=== PATIENT | female | born 1945 | race Caucasian/White ===

== ENCOUNTER 2018-12-25 10:22 | Emergency (ER) | payer MEDICARE, OTHER ==
--- OUTSIDE RECORDS SUMMARY | 2018-12-25 10:29 | XMS REPORT | Continuity of Care Document ---
:1945 External Reference #:[id number] Author Name Alfonzo Cobb M.D. (transmitted by agent of provider Tessa Dempsey) Address [address] [facility] [address], [place] [address] Care Team Providers Name Role Phone Alfonzo Cobb III, MD - Internal Care Team Information [employer] Medicine Problems Active Problems Provider Date Glaucoma Alfonzo Cobb M.D. Onset: 09/25/2016 Disorder of bone Alfonzo Cobb M.D. Onset: 09/25/2015 Osteochondropathy Alfonzo Cobb M.D. Onset: 03/10/2013 Pure hypercholesterolemia Alfonzo Cobb M.D. Onset: 03/10/2013 Social History Type Date Description Comments Sex Unknown Tobacco Use Start: Unknown Never Smoked Cigarettes ETOH Use Currently consumes alcohol 6-9 drinks/week Tobacco Use Start: Unknown Patient has never smoked Smoking Status Reviewed: 11/16/18 Patient has never smoked Exercise Type/Frequency Exercises regularly Allergies, Adverse Reactions, Alerts Active Allergies Reaction Severity Comments Date Timolol 01/03/2016 Inactive Allergies NKDA 04/07/2007 NKDA 01/03/2016 Medications Active Medications SIG Qnty Indications Ordering Provider Date Calcium/Vitamin D bid 100tabs Alfonzo Cobb, 04/06/2007 600mg M.D. Tablets Multi-Day Vitamins 1 PO qd Unknown Tablets Latanoprost right eye only Unknown 0.005% Solution Medications Administered in Office Medication SIG Qnty Indications Ordering Provider Date Influenza Virus Vaccine Unknown 12/18/2013 Injection Immunizations CPT Code Status Date Vaccine Lot # [id number] Given 09/25/2016 Tdap - Tetanus/Diptheria/Acellular Pertussis [id number] Given 04/20/2014 Pneumococcal Conjugate Vaccine 13 Valent For [id number] Intramuscular Use 14815 Given 03/10/2013 Pneumonia Vaccine [id number] Given 12/21/2012 Flu Vaccine Split Virus Preservative Free For [id number] Indiv 3Yr Older 96902 Given 12/09/2008 Influenza Virus 3Yrs & Over [id number] Given 03/19/2006 Pneumovax (History By Patient) [id number] Given 03/19/2006 Td (History By Patient) Vital Signs Date Vital Result Comment 11/16/2018 11:06am Height 61 inches 5'1" Weight 121.00 lb Heart Rate 58 /min BP Systolic 137 mmHg BP Diastolic 72 mmHg O2 % BldC Oximetry 100 % BMI (Body Mass Index) 22.9 kg/m2 10/02/2017 3:50pm Height 61 inches 5'1" Weight 121.00 lb Heart Rate 63 /min BP Systolic Sitting 120 mmHg BP Diastolic Sitting 68 mmHg O2 % BldC Oximetry 99 % BMI (Body Mass Index) 22.9 kg/m2 Results Description No Information Available Procedures Date Code Description Status 09/17/2018 18878176 Mammogram Completed 09/16/2017 [id number] Bone Mineral Density Test Completed 09/16/2017 [id number] Mammogram Completed 09/16/2016 [id number] Mammogram Completed 08/17/2015 [id number] Bone Mineral Density Test Completed 08/17/2015 [id number] Mammogram Completed 08/31/2013 [id number] Diabetic Retinal Eye Exam Completed 07/28/2013 [id number] Colonoscopy Completed 03/15/2013 [id number] Bone Mineral Density Test Completed 02/26/2013 [id number] Mammogram Completed 08/30/2010 678512662 Bone Mineral Density Test Completed 05/25/2008 [id number] Colonoscopy Completed Medical Devices Description No Information Available Encounters Description No Information Available Assessments Date Code Description Provider 11/16/2018 Z00.00 Encounter for general adult medical Alfonzo Cobb M.D. examination without abnormal findings 11/16/2018 M85.89 Other specified disorders of bone density Alfonzo Cobb M.D. and structure, multiple sites 11/16/2018 E78.00 Pure hypercholesterolemia, unspecified Alfonzo Cobb M.D. 11/16/2018 H40.9 Unspecified glaucoma Alfonzo Cobb M.D. 11/16/2018 M54.5 Low back pain Alfonzo Cobb M.D. 11/16/2018 H61.23 Impacted cerumen, bilateral Alfonzo Cobb M.D. Plan of Treatment Future Appointment(s):11/18/2019 9:20 am - [facility] - Alfonzo Cobb M.D.Z00.00 Encounter for general adult medical examination without abnormal findingsComments: Discussed the new shingles vaccine; other shots current. (+) dental. eye exams. Colon exam currentwith repeat planned next yearM85.89 Other specified disorders of bone density and structure, multiple sitesComments:On Calcium/Vit D Rx. Repeat DEXA scan due next yearE78.00 Pure hypercholesterolemia, unspecifiedComments:Diet Rx only; repeat labs [id number] Unspecified glaucomaComments:On Rx per pt's [id number] Low back painNew Therapy: Physical TherapyComments:Chronic, occ low back ache sx; PT eval [id number] Impacted cerumen, bilateralNew Orders:bilat ear lavage, Ordered: 11/16/18 Functional Status Description No Information Available Mental Status Description No Information Available Referrals Description No Information Available
[2018-12-25 10:34] VITALS: BP 111/61
--- NOTE | 2018-12-25 12:18 | UC ---
Knee Pain HPI - HPI Summary HPI Summary: PATIENT FELL DOWN THE STAIRS AT HOME YESTERDAY MORNING WHILE DUSTING. LANDED DIRECTLY ON HER LEFT KNEE. IS ABLE TO WEIGHT-BEAR AND HAS MINIMAL DISCOMFORT IF SHE KEEPS HER KNEE STRAIGHT. DENIES NUMBNESS OR TINGLING. - History of Current Complaint Chief Complaint: UCLowerExtremity Stated Complaint: LEFT KNEE PAIN Time Seen by Provider: 12/25/18 11:45 Hx Obtained From: Patient, Family/Inserter Promotional Item - Onset/Duration: Sudden Onset, Lasting Days - 1 DAY, Still Present Severity Initially: Moderate Severity Currently: Moderate Pain Intensity: 7 Pain Scale Used: 0-10 Numeric Character: Sharp Aggravating Factor(s): Movement, Weight Bearing Alleviating Factor(s): Rest, Position Associated Signs And Symptoms: Positive: Swelling Able to Bear Weight: Yes - WITH STRAIGHT LEG - Allergies/Home Medications Allergies/Adverse Reactions: Allergies Allergy/AdvReac Type Severity Reaction Status Date / Time No Known Allergies Allergy Verified 12/25/18 10:35 Home Medications: Home Medications Latanoprost/Pf [Latanoprost 0.005% Eye Drop] 1 % .ROUTE IN AM AND AT BEDTIME MDD right eye 12/25/18 [History Confirmed 12/25/18] PMH/Surg Hx/FS Hx/Imm Hx Previously Healthy: Yes - Surgical History Surgical History: Yes Surgery Procedure, Year, and Place: sarkis,appy,eye surgeries ,left humerus plated , - Family History Known Family History: Positive: Non-Contributory - Social History Alcohol Use: Daily Substance Use Type: None Smoking Status (MU): Never Smoked Tobacco Review of Systems All Other Systems Reviewed And Are Negative: Yes Constitutional: Positive: Negative Skin: Positive: Negative Respiratory: Positive: Negative Cardiovascular: Positive: Negative Gastrointestinal: Positive: Negative Musculoskeletal: Positive: Arthralgia, Decreased ROM, Edema Physical Exam Triage Information Reviewed: Yes Appearance: Well-Appearing, No Pain Distress, Well-Nourished Vital Signs: Initial Vital Signs Temp 97.6 F 12/25/18 10:31 Pulse 77 12/25/18 10:31 Resp 16 12/25/18 10:31 BP 111/61 12/25/18 10:31 Pulse Ox 100 12/25/18 10:31 Vital Signs Reviewed: Yes Eyes: Positive: Conjunctiva Clear ENT: Positive: Hearing grossly normal Neck: Positive: Supple Respiratory: Positive: No respiratory distress, No accessory muscle use Cardiovascular: Positive: Pulses Normal Abdomen Description: Positive: Soft Musculoskeletal: Positive: ROM Limited @ - LEFT KNEE FLEXION, Edema @ - LEFT KNEE, Other: - LEFT KNEE TENDER OVER PATELLA. NO JOINT LINE TENDERNESS. MCL AND LCL INTACT TO STRESS TESTING. NEG DRAWERS SIGNS. NO TENDERNESS OVER PATELLAR LIGAMENT OR QUADRICEPS TENDON. DECREASED ROM (FLEXION). Neurological: Positive: Alert Psychological: Positive: Age Appropriate Behavior Skin: Negative: Rashes Diagnostics - Radiology LEFT KNEE XRAYS Radiology Interpretation Completed By: Radiologist Summary of Radiographic Findings: comminuted and somewhat displaced fracture of the patella Knee Pain Course/Dx - Course Course Of Treatment: LEFT KNEE X-RAYS TODAY SHOW A COMMINUTED AND SOMEWHAT DISPLACED FRACTURE OF THE PATELLA WITH MILD MEDIAL AND LATERAL COMPARTMENT JOINT SPACE NARROWING. I CALLED ORTHOPEDICS AND THEY WOULD LIKE TO SEE HER TODAY. APPOINTMENT AT 1:[address] MEDINA. ADVISED TO KEEP KNEE STRAIGHT AND BE NONWEIGHTBEARING. KOMAL WRAP APPLIED AND CRUTCHES PROVIDED. KNEE IMMOBILIZER NOT USED ORTHOPEDICS DOES NOT APPROVE OF THE TYPE OF KNEE IMMOBILIZER WE HAVE HERE AT THE . - Differential Dx/Diagnosis Provider Diagnosis: Displaced fracture of left patella Discharge ED - Sign-Out/Discharge Documenting (check all that apply): Patient Departure All imaging exams completed and their final reports reviewed: Yes - Discharge Plan Condition: Stable Disposition: HOME Patient Education Materials: Patellar Fracture (ED) Referrals: Amber Medina MD [Medical Doctor] - (YOU HAVE AN APPT TODAY AT 1:45PM) Alfonzo Cobb MD [Primary Care Provider] - If Needed Additional Instructions: LEFT KNEE X-RAYS TODAY SHOW A COMMINUTED AND SOMEWHAT DISPLACED FRACTURE OF THE PATELLA. KEEP YOUR KNEE STRAIGHT. THE KOMAL BANDAGE WILL HELP REMIND YOU NOT TO BEND YOUR KNEE. USE THE CRUTCHES AND BE NONWEIGHTBEARING UNTIL SEEN BY ORTHOPEDICS TODAY AND THEY FURTHER ADVISE YOU. - Billing Disposition and Condition Condition: STABLE Disposition: Home
== END 2018-12-25 12:30 | disposition home or self-care (01) ==
LOC: UCEAST 10:22
DX: S82.002A Unspecified fracture of left patella, initial encounter for closed fracture (principal); W10.9XXA Fall (on) (from) unspecified stairs and steps, initial encounter; Y93.E9 Activity, other interior property and clothing maintenance; Y92.009 Unspecified place in unspecified non-institutional (private) residence as the place of occurrence of the external cause
CPT/HCPCS: 99213; G0463

== ENCOUNTER → 2018-12-29 13:31 | Day surgery (SDC) | payer MEDICARE, OTHER ==
--- NOTE | 2018-12-28 09:02 | HP ---
AMENDED REPORT NOW INCLUDES DESIGNATED COSIGNER PREOPERATIVE HISTORY AND PHYSICAL: DATE OF ADMISSION: 12/29/18 ATTENDING PHYSICIAN: Dr. Amber Medina.* (DICTATED BY NICHOLAS KOVACS) HISTORY OF PRESENT ILLNESS: This is a 73-year-old female who presents with left knee pain after falling down stairs on 12/24/18. She was trying to dust a high place and was only on 5 stairs but lost her footing and fell down landing directly on the left knee. She had immediate 8/10 pain and was unable to bear weight on the extremity due to her discomfort. She went to [facility], where x-rays were performed and revealed a fracture of her patella. She was given a bulky Alexsander bandage and referred to our office. On presentation, she says she has less pain if she keeps the leg still and straight but any movement is quite painful. She denies previous injury to this knee and has only used gvan-uhf-mthltdp medication for discomfort. PAST MEDICAL HISTORY: Glaucoma, osteopenia, and right humerus fracture. PAST SURGICAL HISTORY: Right humerus open reduction internal fixation, glaucoma surgery, and cataract surgery. She denies anesthetic complications with these procedures. CURRENT MEDICATIONS: 1. Calcium plus vitamin D 600 mg b.i.d. 2. Multivitamin 1 tab p.o. daily. 3. Latanoprost 0.005% drops to right eye only. ALLERGIES: TIMOLOL. FAMILY HISTORY: Positive for paternal cancer but no heart disease or diabetes. SOCIAL HISTORY: She lives with her . 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 She denies tobacco or recreational drug use and will consume approximately 7 alcoholic beverages per week. She is very active with swimming and balance classes, and she is right-hand dominant. REVIEW OF SYSTEMS: Fourteen systems are reviewed with the patient today and are negative. PHYSICAL EXAMINATION GENERAL: The patient is a well-developed, well-nourished female seated on exam chair, in no distress, with appropriate affect. VITAL SIGNS: Height 61 inches, weight 119 pounds, blood pressure 138/72, pulse of 80. HEENT: Normocephalic, atraumatic. Hearing and vision are grossly intact with extraocular movements intact. NECK: Trachea is midline and symmetrical. LUNGS: Clear to auscultation. No wheezes, rales, or rhonchi appreciated. CARDIO: Regular rate and rhythm. Normal S1, S2. No murmurs, rubs or gallops noted. ABDOMEN: Nondistended, soft with bowel sounds present. GAIT: Gait is antalgic favoring the left lower extremity. MUSCULOSKELETAL: Left lower extremity: Skin is dry and intact without open wounds or abrasions. Mild edema is noted without erythema or ecchymosis. The patient is tender to palpation in the peripatellar region and she is unable to do a straight leg raise due to pain. She has active range of motion in 4 planes and 5/5 strength against resistance in the left ankle without distal edema, varicosities, or hyperreflexia. Sensation is intact to light touch throughout with a 2+ dorsalis pedis pulse. IMAGING: Multiple views of the left knee are reviewed and show a comminuted fracture of the inferior portion of the patella with significant articular surface displacement on the lateral view. ASSESSMENT: Comminuted displaced left patellar fracture. PLAN: Open reduction internal fixation of left patellar fracture with Dr. Medina. The patient's questions were answered and she would like to proceed. She will obtain clearance through her primary care, Dr. Cobb, prior to the surgery and can call with questions or concerns otherwise. She will follow up postoperatively. NICHOLAS KOVACS [id number]/[facility] #: [id number] MTDD
[~2018-12-29 13:31] MED LIST: Buffered Lidocaine 1% SYRIN* 1 ML/SYRINGE INTRADERM ONE; Dexamethasone IV* 4 MG/ML 1 ML (4 MG) IV SLOW PU ONE; Dexamethasone IV* 4 MG/ML 1 ML (4 MG) ONE; DiMENhydriNATE IV* 50 MG/ML VIAL IV PUSH PRN; Famotidine IV* 10 MG/ML 2 ML (20 mg) IV ONE; Famotidine IV* 10 MG/ML 2 ML (20 mg) ONE; HYDROmorphone INJ1* 1 MG/ML SYRINGE IV PRN; HYDROmorphone INJ1* 1 MG/ML SYRINGE ONE; KETAMINE HCL* 50 MG/ML 10 ML VIAL ONE; Ketorolac INJ* 30 MG/ML 1 ML VIAL ONE; Lactated Ringers 1000 ML Bag* 1,000 ML IV SCH; Lidocaine 2% PF * 5 ML VIAL ONE; Naloxone* 0.4 MG/ML 1 ML VIAL IV PRN; Ondansetron INJ* 2 MG/ML VIAL ONE; Propofol* 10 MG/ML 20 ML BTL ONE; ROPIVACAINE 5 MG/ML 30 ML BTL (0.5%) ONE; ceFAZolin 2 GM in NS PREMIX(*) 2 GM/100 ML BAG IVPB ONE; fentaNYL* 50 MCG/ML 2 ML VIAL (100 MCG VIAL) ONE; oxyCODONE/Acetamin 5/325 MG* TAB ONE
[2018-12-29] MEDS: fentaNYL* 50 MCG/ML 2 ML VIAL (100 MCG VIAL) IV PRN ×4 (19:36→20:30)
[2018-12-29 21:21] VITALS: BP 131/76
--- NOTE | 2018-12-30 00:31 | OP ---
DATE OF OPERATION: 12/29/18 - [facility] DATE OF : 41 SURGEON: Amber Medina MD SALES TRADER: NICHOLAS Carreno. Ms. Michel did help throughout the procedure with preparation of the leg, wound retraction, manipulation of the knee and wound closure. ANESTHESIOLOGIST: Dr. Flores. ANESTHESIA: General. PRE-OP DIAGNOSIS: Left knee, comminuted displaced patellar fracture. POST-OP DIAGNOSIS: Left knee, comminuted displaced patellar fracture. OPERATIVE PROCEDURE: Open reduction and internal fixation of the left comminuted displaced patellar fracture. TOURNIQUET TIME: 32 minutes. COMPLICATIONS: None. SPECIMENS: None. HARDWARE USED: This was the Arthrex patella fracture system, two 4-0 cannulated screws, length of 32 mm were used along with the FiberTape cerclage system. BRIEF HISTORY/INDICATION: Ms. Lira is a 73-year-old female, who took a fall over the weekend and fractured her left patella. On radiograph, there was a comminution of the closed fracture as well as significant articular step-off of the inferior fracture fragment. I did recommend operative treatment of the fracture and the patient wished to proceed. Informed consent was obtained from the patient. She understood the risks of surgery included, but were not limited to bleeding, infection, damage to nearby structures, continued pain, need for further surgery, failure of hardware, failure of fracture fixation, nonunion, malunion, post- traumatic arthritis, stiffness, loss of motion, stroke, heart attack, blood clot and . She wished to proceed. 1INTRAOPERATIVE FINDINGS: Intraoperatively, the patient was noted to have comminuted fracture where the main superior and inferior fragments. The inferior fragment was flipped 180 degrees due to the pull of the patellar tendon and retinaculum. DESCRIPTION OF PROCEDURE: Ms. Lira was identified in the preanesthesia unit. Her left lower extremity was marked as correct operative site. Informed consent was signed and placed in the chart. The patient was taken to the operating room and placed under anesthesia without difficulty. A tourniquet was placed on the left thigh. Left lower extremity was prepped and draped in the usual sterile fashion. Pre-op time out was made to correctly identify the patient, side and site. Appropriate perioperative antibiotics were given within 1 hour of incision. Tourniquet was inflated. A midline incision was made with a 10-blade and carried down out to be a extensor mechanism. There was some disruption of the medial retinacular fibers and visible fracture hematoma. A standard medial peripatellar arthrotomy was continued superiorly and inferiorly with careful attention not to harm any underlying meniscus or bone. The patella was everted. The patella had significant comminution with one large inferior fragment that was rotated 180 degrees. Careful reduction was obtained using [id number] forceps. Multiple AP and lateral C-arm views confirmed satisfactory reduction of the fracture fragments. The Arthrex cannulated screw patellar fracture system was used. The K-wires were placed inferior to superior in a parallel fashion. Multiple radiographs confirmed satisfactory placement of the K-wires. These were measured at approximately 32 mm of length. Drilling over the K-wires was performed. Two 4-0 cannulated screws of length 32 mm were then placed over the K-wires. The fracture reduction held and was satisfactory. Multiple C-arm images confirmed satisfactory reduction of the fracture. At this time, the FiberTape was used to place a tension-band construct through the cannulated screws. This was performed without difficulty. Fracture reduction remained satisfactory. The cerclage was tied off anteriorly over the patella. Multiple C-arm views confirmed a satisfactory reduction. The knee was flexed to 45 degrees without loss reduction. The knee was copiously irrigated with sterile saline. Tourniquet was turned down. The retinacular rupture, anterior patellar arthrotomy were repaired using interrupted #1 Vicryl. The rest of the incision was closed in layered fashion using 3-0 and 2-0 Vicryl. Skin was closed with 3-0 Monocryl and Dermabond. Sterile Adaptic, 4x4s and paper tape were used to cover the incision. Alexsander wrap and cold packs were placed over this. Knee immobilizer was placed. The patient's anesthesia was reversed without difficulty. She was taken to the PACU in stable condition. Intended weightbearing will be weightbearing as tolerated in the knee immobilizer with no knee flexion. She will follow up in 1 week for a wound check. She will have aspirin for DVT prophylaxis. [id number]/[facility] #: [id number] NELSON
== END | disposition home or self-care (01) ==
LOC: OR 13:31
PROVIDERS: ATTEND Orthopaedic Surgery Adult Reconstructive Orthopaedic Surgery
DX: S82.042A Displaced comminuted fracture of left patella, initial encounter for closed fracture (principal); W10.8XXA Fall (on) (from) other stairs and steps, initial encounter; Y93.E9 Activity, other interior property and clothing maintenance; Y92.018 Other place in single-family (private) house as the place of occurrence of the external cause; M85.80 Other specified disorders of bone density and structure, unspecified site; H40.9 Unspecified glaucoma
CPT/HCPCS: 76000; A9270-GY; C1713; J0690; J1100; J1170; J1885; J2405; J2704; J2795; J3010